=== PATIENT | male | born 1940 | race Caucasian/White ===

== ENCOUNTER → 2016-02-25 | Outpatient (CLI) | payer MEDICARE, OTHER ==
[~2016-02-25] MED LIST: AC500T PO; AMIT25TA9 PO; AMLO5TAB2 PO; ASP81TEC PO; ASPI-587 PO; CARV10CP PO; CIPR500T78 PO; CPR500T PO; FAMO20TA13 PO; HCT25T PO; HYDR-3714 PO; LISI20TA2 PO; LOVA40TA54 PO; MELO-195 PO; MELO7.5T PO; METH4TAB PO; OMEP-10 PO; OMEP20CA12 PO; OSLT75C PO; OXYC-12 PO; PANT40TA PO; PHEN200T27 PO; PRD20T PO; TMSL.4C PO; TRAM-21 PO; TRAM50TA2 PO; TYLENOL ARTHIRITIS PO; ZOLP10TA PO
--- OUTSIDE RECORDS SUMMARY | 2016-02-25 09:24 | XMS REPORT | Continuity of Care Document ---
Author Author [facility] Organization [facility] Address Unknown Phone Unavailable Care Team Providers Care Acid Bleacher Name Role Phone ABEL MONTES MD PCP Insurance Providers Payer Name Policy Number Subscriber Name Relationship [employer] [id number] Willy Pritchard 18 Self / Same As Patient [employer] [id number] Willy Pritchard 16 Self / Same As Patient Advance Directives Directive Response Recorded Date/Time Advance Directives No 10/03/13 2:55pm Health Care Power of Framework Developer No 09/06/13 2:41pm Organ Donor Yes 10/03/13 2:55pm Resuscitation Status Full Code 10/03/13 2:55pm Problems Medical Problems Problem Onset Date Status Acute urinary retention Unknown Active Acute urinary retention Unknown Active Dysuria Unknown Active Dysuria Unknown Active Paresthesia Unknown Active Acute renal insufficiency Unknown Active Weakness Unknown Active Paresthesia Unknown Active Medications Medication Dose Route Sig Days/Qty Instructions Order Date Discontinued Date Status Hydrochlorothiazide 25 Mg PO DAILY 04/09/10 02/11/13 Discontinued Lisinopril 20 Mg PO DAILY 04/09/10 Active Acetaminophen 1,000 Mg PO THREE TIMES A DAY PRN PAIN NEEDED FOR PAIN 04/09/10 Active Lovastatin 40 Mg PO BEDTIME 04/09/10 Active Amitriptyline HCl (Elavil) 25 Mg PO BEDTIME 04/09/10 Active Omeprazole 20 Mg PO DAILY 04/09/10 10/20/11 Discontinued Zolpidem Tartrate 10 Mg PO BEDTIME 04/09/10 07/09/13 Discontinued Tramadol Hcl 50 Mg PO NEEDED 04/09/10 10/20/11 Discontinued Hydrocodone Bit/Acetaminophen 1 Ea PO NEEDED 04/09/10 10/19/11 Discontinued Prednisone 1 Tab PO NEEDED 04/09/10 10/19/11 Discontinued Oseltamivir Phosphate 75 Mg PO TWICE A DAY 10 Qty 04/09/10 04/11/10 Discontinued Ciprofloxacin 1 Tab PO TWICE A DAY 7 Days 04/09/10 04/11/10 Discontinued Meloxicam 7.5 Mg PO DAILY 04/11/10 02/11/13 Discontinued [tylenol arthiritis] 650 Mg PO BEDTIME 04/11/10 10/19/11 Discontinued Omeprazole 20 Mg PO DAILY 30 Qty 11/07/11 02/11/13 Discontinued Aspirin 81 Mg PO DAILY 11/07/11 07/24/13 Discontinued Tramadol Hcl 50 Mg PO BEDTIME 11/07/11 07/08/13 Discontinued Carvedilol Phosphate 10 Mg PO DAILY 11/07/11 02/11/13 Discontinued Meloxicam (Mobic) 15 Mg PO DAILY 02/11/13 Active Amlodipine Besylate (Norvasc 5 Mg) 5 Mg PO DAILY 02/11/13 Active Pantoprazole Sodium 40 Mg PO DAILY 02/11/13 Active Oxycodone Hcl/Acetaminophen 1-2 Each PO Q4-6H PRN PRN PAIN 35 Qty 02/1307/08/13 Discontinued Ciprofloxacin HCl 500 Mg PO TWICE A DAY 10 DAY SUPPLY FILLED ON 07-07-13 07/08/13 09/04/13 Discontinued Tramadol Hcl 50 Mg PO TWICE A DAY PRN PAIN 07/08/13 07/23/13 Discontinued Phenazopyridine HCl 200 Mg PO THREE TIMES A DAY 3 DAY SUPPLY FILLED 07/08/13 07/09/13 Discontinued Famotidine 20 Mg PO TWICE A DAY 20 Qty 07/09/13 Active Tamsulosin HCl 0.4 Mg PO DAILY 30 Qty 07/09/13 07/24/13 Discontinued Ciprofloxacin HCl 500 Mg PO TWICE A DAY 09/06/13 10/03/13 Discontinued Tramadol Hcl 50 Mg PO EVERY 6 HOURS 14 Qty 09/06/13 Active Tamsulosin HCl 0.4 Mg PO DAILY 10/03/13 Active Aspirin 81 Mg PO DAILY 10/03/13 Active Social History Social History Problem Response Recorded Date/Time Alcohol Use Denies Use 10/03/2013 2:55pm Recreational Drug Use No 10/03/2013 2:55pm Smoking Status Never a Smoker 10/03/2013 2:55pm Query Response Start Date Stop Date Smoking Status Never a Smoker Hospital Discharge Instructions No hospital discharge instructions. Plan of Care No plan of care. Functional Status Query Response Date Recorded Patient Orientation Person Place Time Situation Normal For Age October 03, 2013 2:55pm Comprehension Ability Understands Concepts October 03, 2013 2:55pm Allergies, Adverse Reactions, Alerts Allergen Type Severity Reaction Status Last Updated morphine Allergy Unknown Active 05/13/07 Erythromycin base Allergy Unknown Active 05/10/07 Immunizations Name Given Type Date of Pneumonia Vaccine 11/06/08 Historical Vital Signs Acute Vital Signs Vital Response Date/Time Temperature (Fahrenheit) 98.5 degrees F (97.6 - 99.5) Temperature (Calculated Celsius) 36.04431 degrees C (36.4 - 37.5) Temperature Source Temporal Pulse Rate (adult) 91 bpm (60 - 90) Respiratory Rate 20 bpm (12 - 24) O2 Sat by Pulse Oximetry 96 % (88 - 100) Blood Pressure 112/84 mm Hg Pain Pain Intensity 0 Height (Feet) 5 feet Height (Inches) 11 inches Height (Calculated Centimeters) 180.935132 cm Weight (Pounds) 175 pounds Weight (Ounces) 0.0 oz Weight (Calculated Grams) 97563.519 gm Weight (Calculated Kilograms) 79.162800 kilograms Calculated BMI 24.40 Results Test Source Date Result Interp. Ref. Range Comments Activated Partial Thromboplast Time October 03, 2013 3:12pm 29 SEC N 24- 35 Alanine Aminotransferase (ALT/SGPT) October 03, 2013 3:12pm 14 U/L N 0- 55 Albumin October 03, 2013 3:12pm 4.1 G/DL N 3.2-4.5 Alkaline Phosphatase October 03, 2013 3:12pm 44 U/L N 40-136 Amylase Level May 13, 2007 5:35pm 37 U/L N 25-115 Has specimen been collected/obtained? Y Anisocytosis July 08, 2013 4:25am SLIGHT - Aspartate Amino Transf (AST/SGOT) October 03, 2013 3:12pm 12 U/L N 5-34 B-Type Natriuretic Peptide April 09, 2010 8:50am 10.3 PG/ML N 5.0-100.0 BUN/Creatinine Ratio October 03, 2013 3:12pm 19 - Band Neutrophils July 08, 2013 4:25am 1 % - Basophils # (Auto) October 03, 2013 3:12pm 0.0 10^3/uL N 0.0-0.1 Basophils % (Manual) July 08, 2013 4:25am 0 % - Basophils (%) (Auto) October 03, 2013 3:12pm 0 % N 0-10 Blood Urea Nitrogen October 03, 2013 3:12pm 27 MG/DL H 7-18 Calcium Level October 03, 2013 3:12pm 9.4 MG/DL N 8.5-10.1 Carbon Dioxide Level October 03, 2013 3:12pm 22 MMOL/L N 21-32 Chloride Level October 03, 2013 3:12pm 107 MMOL/L N 98-107 Cholesterol Level November 06, 2011 9:50am 129 MG/DL N -200 Creatine Kinase MB April 09, 2010 8:50am 0.3 NG/ML N 0.0-3.6 Creatinine October 03, 2013 3:12pm 1.43 MG/DL H 0.60-1.30 D-Dimer October 03, 2013 3:12pm 0.34 UG/ML N 0.00-0.49 Direct Bilirubin July 08, 2013 4:25am 0.1 MG/DL N 0.0-0.30 Eosinophils # (Auto) October 03, 2013 3:12pm 0.0 10^3/uL N 0.0-0.3 Eosinophils % (Manual) July 08, 2013 4:25am 0 % - Eosinophils (%) (Auto) October 03, 2013 3:12pm 1 % N 0-10 Free Thyroxine April 08, 2010 9:36am 1.15 NG/DL N 0.59-1.17 Gastric Fluid Occult Blood May 10, 2007 1:45am Positive - Glucose Level October 03, 2013 3:12pm 130 MG/DL H 70-105 Group A Streptococcus Screen April 09, 2010 9:14am NEGATIVE - HDL Cholesterol November 06, 2011 9:50am 39 MG/DL N 35-60 Hematocrit October 03, 2013 3:12pm 34 % L 40-54 Hemoglobin October 03, 2013 3:12pm 11.6 G/DL L 13.3-17.7 Indirect Bilirubin July 08, 2013 4:25am 0.5 MG/DL - LDL Cholesterol November 06, 2011 9:50am 73 MG/DL N 0-129 Lactic Acid Level July 08, 2013 5:05am 0.6 MMOL/L N 0.4-2.0 Lipase September 06, 2007 1:00am 231 U/L N 114-286 Has specimen been collected/obtained? YHas specimen been collected/obtained? Y Lymphocytes # (Auto) October 03, 2013 3:12pm 1.2 X 10^3 N 1.0-4.0 Lymphocytes % (Manual) July 08, 2013 4:25am 6 % - Lymphocytes (%) (Auto) October 03, 2013 3:12pm 16 % N 12-44 Mean Corpuscular Hemoglobin October 03, 2013 3:12pm 30 PG N 25-34 Mean Corpuscular Hemoglobin Concent October 03, 2013 3:12pm 34 G/DL N 32- 36 Mean Corpuscular Volume October 03, 2013 3:12pm 90 FL N 80-99 Mean Platelet Volume October 03, 2013 3:12pm 9.3 FL N 7.4-10.4 Monocytes # (Auto) October 03, 2013 3:12pm 0.3 X 10^3 N 0.0-1.0 Monocytes % (Manual) July 08, 2013 4:25am 5 % - Monocytes (%) (Auto) October 03, 2013 3:12pm 3 % N 0-12 Neutrophils # (Auto) October 03, 2013 3:12pm 6.2 X 10^3 N 1.8-7.8 Neutrophils % (Manual) July 08, 2013 4:25am 87 % - Neutrophils (%) (Auto) October 03, 2013 3:12pm 80 % H 42-75 Platelet Count October 03, 2013 3:12pm 200 10^3/uL N 130-400 Potassium Level October 03, 2013 3:12pm 4.6 MMOL/L N 3.6-5.0 Prothromb Time International Ratio November 06, 2011 9:50am 0.9 N 0.8- 1.4 INTERPRETIVE DATASUGGESTED THERAPEUTIC RANGE FOR INR'S : VENOUS THROMBOSIS, PULMONARY EMBOLISM, OR PREVENTION OF SYSTEMIC EMBOLISM (EG. IN ATRIAL FIBRILLATION): 2.0 - 3.0 MECHANICAL PROSTHETIC HEART VALVES: 2.5 - 3.5* *NOTE: INR'S UP TO 4.5 MAY BE NECESSARY IN SELECTED GROUPS OF HIGH RISK PATIENTS. [employer] PHYSIC[employer]ANS CONSENSUS CONFERENCE ON ANTITHROMBOTIC THERAPY (2000). Prothrombin Time October 03, 2013 3:12pm 13.8 SEC N 12.2-14.7 Reactive Lymphocytes July 08, 2013 4:25am 1 % - Red Blood Count October 03, 2013 3:12pm 3.81 10^6/uL L 4.35-5.85 Red Cell Distribution Width October 03, 2013 3:12pm 13.3 % N 10.0-14.5 Salicylates Level April 09, 2010 8:50am 0.4 MG/DL L 2.8-20.0 Sodium Level October 03, 2013 3:12pm 139 MMOL/L N 135-145 TSH [place] Testing April 08, 2010 9:36am 0.20 UIU/ML L 0.34-5.60 FREE T4 (THYROXINE) PERFORMED REFLEXIVELY PART OF THETHYROID ANALYZER. Thyroid Stimulating Hormone (TSH) April 09, 2010 8:50am 0.30 UIU/ML L 0.34-5.60 Total Bilirubin October 03, 2013 3:12pm 0.5 MG/DL N 0.1-1.0 Total Protein October 03, 2013 3:12pm 7.2 G/DL N 6.4-8.2 Triglycerides Level November 06, 2011 9:50am 87 MG/DL N 30.0-150.0 Troponin I October 03, 2013 3:12pm < 0.30 NG/ML - Urine Bacteria September 04, 2013 7:58pm TRACE /HPF - Has specimen been collected/obtained? YSpecimen Description CLEAN CATCH Urine Bilirubin September 04, 2013 7:58pm NEGATIVE - Has specimen been collected/obtained? YSpecimen Description CLEAN CATCH Urine Casts September 04, 2013 7:58pm NONE /LPF - Has specimen been collected/obtained? YSpecimen Description CLEAN CATCH Urine Clarity September 04, 2013 7:58pm VERY CLOUDY H - Has specimen been collected/obtained? YSpecimen Description CLEAN CATCH Urine Color September 04, 2013 7:58pm LORNE H - Has specimen been collected/ obtained? YSpecimen Description CLEAN CATCH Urine Crystals September 04, 2013 7:58pm NONE /LPF - Has specimen been collected/obtained? YSpecimen Description CLEAN CATCH Urine Culture Indicated September 04, 2013 7:58pm YES - Has specimen been collected/obtained? YSpecimen Description CLEAN CATCH Urine Glucose (UA) September 04, 2013 7:58pm NEGATIVE - Has specimen been collected/obtained? YSpecimen Description CLEAN CATCH Urine Ketones September 04, 2013 7:58pm 1+ H - Has specimen been collected/ obtained? YSpecimen Description CLEAN CATCH Urine Leukocyte Esterase September 04, 2013 7:58pm 3+ H - Has specimen been collected/obtained? YSpecimen Description CLEAN CATCH Urine Mucus September 04, 2013 7:58pm SMALL /LPF H - Has specimen been collected/obtained? YSpecimen Description CLEAN CATCH Urine Nitrite September 04, 2013 7:58pm NEGATIVE - Has specimen been collected/obtained? YSpecimen Description CLEAN CATCH Urine Protein September 04, 2013 7:58pm 2+ H - Has specimen been collected/ obtained? YSpecimen Description CLEAN CATCH Urine RBC September 04, 2013 7:58pm TNTC /HPF H - Has specimen been collected/obtained? YSpecimen Description CLEAN CATCH Urine Specific [place] September 04, 2013 7:58pm 1.015 L - Has specimen been collected/obtained? YSpecimen Description CLEAN CATCH Urine Squamous Epithelial Cells July 21, 2013 2:17pm NONE /HPF - Has specimen been collected/obtained? YSpecimen Description CLEAN CATCH Urine Urobilinogen September 04, 2013 7:58pm NORMAL MG/DL - Has specimen been collected/obtained? YSpecimen Description CLEAN CATCH Urine WBC September 04, 2013 7:58pm 25-50 /HPF H - Has specimen been collected/obtained? YSpecimen Description CLEAN CATCH Urine pH September 04, 2013 7:58pm 7 - Has specimen been collected/ obtained? YSpecimen Description CLEAN CATCH VLDL Cholesterol November 06, 2011 9:50am 17 MG/DL N 5-40 White Blood Count October 03, 2013 3:12pm 7.7 10^3/uL N 4.3-11.0 Estimat Glomerular Filtration Rate October 03, 2013 3:12pm 48 - GFR INTERPRETIVE DATA UNITS FOR ESTIMATED GFR (eGFR): mL/min/1.73 M2 REFERENCE RANGE FOR ESTIMATED GFR (eGFR) eGFR NORMAL eGFR >60 MODERATELY DECREASED eGFR 30-59 SEVERLY DECREASED eGFR 15-29 KIDNEY FAILURE <15 (OR DIALYSIS) Blood Morphology Comment September 06, 2007 1:00am Normal - Has specimen been collected/obtained? Y Creatine Kinase April 09, 2010 8:50am 118 U/L N 21-170 Urine RBC (Auto) September 04, 2013 7:58pm 5+ H - Has specimen been collected/obtained? YSpecimen Description CLEAN CATCH INR Comment October 03, 2013 3:12pm 1.1 N 0.8-1.4 INTERPRETIVE DATASUGGESTED THERAPEUTIC RANGE FOR INR'S: VENOUS THROMBOSIS, PULMONARY EMBOLISM, OR PREVENTION OF SYSTEMIC EMBOLISM (EG. IN ATRIAL FIBRILLATION): 2.0 - 3.0 MECHANICAL PROSTHETIC HEART VALVES: 2.5 - 3.5* *NOTE: INR'S UP TO 4.5 MAY BE NECESSARY IN SELECTED GROUPS OF HIGH RISK PATIENTS. [employer] CONSENSUS CONFERENCE ON ANTITHROMBOTIC THERAPY (2000). Blood Culture Peripheral-Rt Ac July 08, 2013 5:00am No growth Ova and Parasites Stool May 16, 2007 7:10am MRSA Screen Nasal July 21, 2013 2:15pm MRSA not isolated Urine Culture Urine-Clean Catch September 04, 2013 7:58pm NO GROWTH Procedures Procedure Status Date Provider(s) Tracing only of electrocardiogram completed 10/03/13 JAZMYNE MAYFIELD MD Encounters Encounter Location Date/Time Departed Emergency Room [facility] 10/03/13 2:56pm Departed Emergency Room [facility] 09/06/13 2:34pm Departed Emergency Room [facility] 09/04/13 7:14pm Recent Diagnosis
--- NOTE | 2016-02-25 13:05 | Diagnostic Imaging Report ---
PA and lateral views of the chest. COMPARISON: 07/21/2013. INDICATION: Shortness of breath and cough. FINDINGS: There is minimal atelectasis or scarring in the right lung base. The left lung is clear. The heart size is normal. No effusion or pneumothorax. Mediastinum and yaneli appear unremarkable. Flattening of the diaphragms on the lateral view is suggestive of hyperinflation probably related to COPD. IMPRESSION: COPD. Minimal right basilar atelectasis or scarring. Dictated by: Dictated on workstation # [id number]
== END ==
LOC: RAD 09:20
PROVIDERS: ATTEND Urology
DX: R05 Cough (principal); R06.02 Shortness of breath; J44.9 Chronic obstructive pulmonary disease, unspecified
CPT/HCPCS: 71020

== ENCOUNTER → 2016-09-12 | Outpatient (CLI) | payer MEDICARE, OTHER ==
[~2016-09-12] VITALS: Ht 177.8 cm; Wt 73.9 kg
[~2016-09-12] MED LIST changes: +CATHETER FLUSH 10 ML SYR IV PRN; +REGADENOSON 0.4 MG/5 ML SYR (LEXISCAN) IV ONE
[2016-09-12 12:58] VITALS: BP 160/79
--- NOTE | 2016-09-13 07:06 | STRESS TEST ---
DATE OF SERVICE: 09/12/2016 RESTING AND POST-REGADENOSON TECHNETIUM-[address] IMAGING ORDERING PHYSICIAN: Dr. Eugene. PRIMARY PHYSICIAN: ____. CLINICAL DIAGNOSIS: Shortness of breath. Baseline images were carried out after injection of 10.94 mCi of technetium-99 tetrofosmin. This was followed by 0.4 mg regadenoson and 28.9 mCi of technetium-99 tetrofosmin for stress imaging. The electrocardiogram showed sinus rhythm at baseline and did not change significantly with the regadenoson infusion. Review of images at rest and following stress does not indicate evidence of significant myocardial ischemia or infarction. Gated images show normal global left ventricular systolic function with normal regional wall motion. Left ventricular ejection fraction is calculated to be 73%. Left ventricular end-diastolic volume is 63 mL. TID is absent (1.05). CONCLUSIONS: 1. No evidence of any significant myocardial ischemia or infarction on this study. 2. Normal regional wall motion. 3. Normal global left ventricular systolic function with a calculated ejection fraction of 73%. 4. Normal left ventricular cavity size. Job ID: [id number] DocumentID: [id number] Dictated Date: 09/12/2016 15:02:18 Upholstery Cutter Date: 09/13/2016 02:12:44 Dictated By: JUAN EUGENE MD, MA, FACP, FACC,
== END ==
LOC: CARD 10:54
PROVIDERS: ATTEND Internal Medicine Cardiovascular Disease
DX: R06.02 Shortness of breath (principal)
CPT/HCPCS: 78452; 93017

== ENCOUNTER → 2016-10-18 | Outpatient (CLI) | payer MEDICARE, OTHER ==
[~2016-10-18] MED LIST changes: -CATHETER FLUSH 10 ML SYR IV PRN; -REGADENOSON 0.4 MG/5 ML SYR (LEXISCAN) IV ONE; +RT-ALBUTEROL SULF 2.5 MG/3 ML PRE-MIX VIAL IH ONE; +RT-ALBUTEROL SULF 2.5 MG/3 ML PRE-MIX VIAL ONE
== END ==
LOC: RT 08:43
PROVIDERS: ATTEND Nurse Practitioner Family
DX: I25.10 Atherosclerotic heart disease of native coronary artery without angina pectoris (principal); I65.23 Occlusion and stenosis of bilateral carotid arteries; I10 Essential (primary) hypertension; E78.4 Other hyperlipidemia; R06.09 Other forms of dyspnea
CPT/HCPCS: 94060; 94640; 94726; 94729

== ENCOUNTER → 2016-12-22 | Outpatient (CLI) | payer MEDICARE, OTHER ==
[~2016-12-22] MED LIST changes: -RT-ALBUTEROL SULF 2.5 MG/3 ML PRE-MIX VIAL IH ONE; -RT-ALBUTEROL SULF 2.5 MG/3 ML PRE-MIX VIAL ONE
== END ==
LOC: CARD 12:34
PROVIDERS: ATTEND Nurse Practitioner Family
DX: R06.09 Other forms of dyspnea (principal); I10 Essential (primary) hypertension; I25.10 Atherosclerotic heart disease of native coronary artery without angina pectoris; I65.23 Occlusion and stenosis of bilateral carotid arteries
CPT/HCPCS: 93306

== ENCOUNTER → 2019-08-26 | Outpatient (CLI) | payer MEDICARE, OTHER ==
[~2019-08-26] VITALS: Ht 178 cm; Wt 75.0 kg
[~2019-08-26] MED LIST changes: +CATHETER FLUSH 10 ML SYR IV PRN; +REGADENOSON 0.4 MG/5 ML SYR (LEXISCAN) IV ONE
[2019-08-26 13:09] VITALS: BP 192/92
--- NOTE | 2019-08-26 15:53 | STRESS TEST ---
DATE OF SERVICE: 08/26/2019 RESTING AND POST REGADENOSON TECHNETIUM-99M TETROFOSMIN SPECT CT IMAGING ORDERING PHYSICIAN: CODY Flood CLINICAL DIAGNOSES: Coronary artery disease. Baseline images were carried out after injection of 10.99 mCi of technetium-99m Tetrofosmin. This was followed by 0.4 mg Regadenoson and 32.8 mCi of technetium-99m Tetrofosmin for stress imaging. The electrocardiogram showed sinus rhythm at baseline. Old septal wall myocardial infarction cannot be excluded on the electrocardiogram. The electrocardiogram did not change significantly with the Regadenoson infusion. The patient tolerated the procedure well. Review of images at rest and following stress does not indicate any significant perfusion defects consistent with significant myocardial ischemia or infarction. Gated images show normal global left ventricular systolic function with normal regional wall motion. Left ventricular ejection fraction is calculated to be 73%. Left ventricular end diastolic volume is 62 mL. TID is absent (1.05). CONCLUSIONS: 1. No evidence of any significant myocardial ischemia or infarction on this study. 2. Normal regional wall motion. 3. Normal global left ventricular systolic function with a calculated ejection fraction of 73%. Job ID: [id number] DocumentID: [id number] Dictated Date: 08/26/2019 15:44:17 Follow Up Manager Date: 08/26/2019 15:53:10 Dictated By: JUAN LOVE MD, MA, FACP, FACC,
== END ==
LOC: CARD 11:35
PROVIDERS: ATTEND Nurse Practitioner Family
DX: I08.2 Rheumatic disorders of both aortic and tricuspid valves (principal); I25.10 Atherosclerotic heart disease of native coronary artery without angina pectoris
CPT/HCPCS: 78452; 93017; 93306; A9502

== ENCOUNTER → 2020-08-23 | Outpatient (CLI) | payer MEDICARE, OTHER ==
[~2020-08-23] MED LIST changes: -CATHETER FLUSH 10 ML SYR IV PRN; -REGADENOSON 0.4 MG/5 ML SYR (LEXISCAN) IV ONE
--- NOTE | 2020-08-23 12:27 | Diagnostic Imaging Report ---
INDICATION: Neck pain. No relevant comparison. FINDINGS: There is severe degenerative changes at the C5-C6 and moderate to severe C6-C7 spondylosis. There is trace likely degenerative retrolisthesis C5 on C6 grade 1 of about 1 to 2 mm. The prevertebral space appeared normal. No fracture or acute appearing endplate irregularity. IMPRESSION: 1. Advanced lower cervical spondylosis most profound at the C5-C6 level, no acute appearing abnormality however identified. 2. Given the severity of degenerative changes if there is radiculopathy present or otherwise indicated, nonemergent outpatient follow-up with MRI may be useful if there are clinically suspected stenoses. Dictated by: Dictated on workstation # [id number]
== END ==
LOC: RAD 11:50
PROVIDERS: ATTEND Internal Medicine
DX: M47.812 Spondylosis without myelopathy or radiculopathy, cervical region (principal)
CPT/HCPCS: 72040

== ENCOUNTER → 2020-09-08 | Outpatient (CLI) | payer MEDICARE, OTHER ==
--- NOTE | 2020-09-08 10:26 | Diagnostic Imaging Report ---
PROCEDURE: MRI lumbar spine. TECHNIQUE: Multiplanar, multisequence MRI of the lumbar spine was performed without contrast. INDICATION: Back pain. COMPARISON: None FINDINGS: There is transitional lumbosacral anatomy. When compared to previous CT abdomen and pelvis dated 07/08/2013, rudimentary disc is denoted to be S1-S2 level. Evaluation of static alignment demonstrates moderate dextroscoliotic deformity epicentered at the L3-L4 level. There is also slight grade 1 retrolisthesis at T12-L1 through L2-L3. There is also slight grade 1 anterolisthesis at L4-L5. There is no evidence of jumped facets. Vertebral body heights are maintained. There is no acute fracture. Evaluation of marrow signal demonstrates multilevel mild Modic type I endplate changes. Moderate multilevel intervertebral disc height loss is also present. Multilevel anterior and posterior disc bulges are present. Visualized portions of the distal cord are unremarkable. Conus terminates at approximately the L1 level. No abnormal intrathecal filling defects are seen. Pre and paravertebral soft tissue structures are unremarkable. Axial images demonstrate the following: T12-L1: There is mild broad-based posterior disc bulge and bilateral ligamentum flavum laxity and facet arthropathy. As a result, there is moderate narrowing of the right neuroforamen and mild narrowing of the spinal canal and left neuroforamen. L1-L2: There is broad-based posterior disc bulge and bilateral ligamentum flavum laxity and facet arthropathy. As a result, there is moderate stenosis of the spinal canal and right neuroforamen. There is minimal narrowing on the left. L2-L3: There is broad-based posterior disc bulge and bilateral ligamentum flavum laxity and facet arthropathy. As a result, there is moderate stenosis of the spinal canal and bilateral neural foramen. L3-L4: There is broad-based posterior disc bulge and bilateral ligamentum flavum laxity and facet arthropathy. As a result, there is moderate stenosis of the spinal canal and left neuroforamen. There is also mild narrowing on the right. L4-L5: There is broad-based posterior disc bulge and bilateral ligamentum flavum laxity and facet arthropathy. As a result, there is wxdvqpvv-ys-nmamau spinal canal and left neural foraminal stenosis. There is also ginx-ag-uyybsbka narrowing on the right. L5-S1: There is broad-based posterior disc bulge and bilateral facet arthropathy and ligamentum flavum laxity. As a result, there is severe stenosis of the right neuroforamen and flhe-nz-koacjxui stenosis on the left. There is minimal narrowing of the spinal canal. IMPRESSION: 1. Advanced dextroscoliotic deformity and advanced multilevel degenerative changes of the lumbar spine as described above. 2. No acute fracture or dislocation. Dictated by: Dictated on workstation # [id number]
--- NOTE | 2020-09-08 11:38 | Diagnostic Imaging Report ---
PROCEDURE: MR imaging cervical spine without contrast. TECHNIQUE: Multiplanar, multisequence MR imaging of the cervical spine was performed without contrast. INDICATION: Pain in lower neck. COMPARISON: Cervical spine radiographs of 08/23/2020. FINDINGS: Degenerative straightening of the cervical spine is present. There is approximately 3 mm of anterolisthesis of C7 on T1 due to facet osteoarthritis. No fracture or marrow replacing process. There is degenerative pannus around the C1-C2 articulation, but this does not result in significant spinal canal narrowing at the craniocervical junction. The cervical cord maintains normal size and signal. Specifically, there are no features of myelopathy. C2-C3: Central disc protrusion and ligamentum flavum hypertrophy result in mild spinal stenosis. No foraminal narrowing. C3-C4: Left paracentral disc protrusion with ligamentum flavum hypertrophy results in severe spinal stenosis. Moderate bilateral foraminal narrowing is present due to uncovertebral joint hypertrophy and facet osteoarthritis. C4-C5: Central disc protrusion and ligamentum flavum hypertrophy result in moderate spinal stenosis. Severe left and nqwqyiby-fi-jpunoj right foraminal stenosis due to uncovertebral joint hypertrophy. C5-C6: Central disc protrusion with ligamentum flavum hypertrophy causes severe spinal stenosis. There is also severe bilateral neural foraminal narrowing due to uncovertebral joint hypertrophy. C6-C7: Disc protrusion and uncovertebral joint hypertrophy result in mild spinal stenosis and urrohcal-jd-lymcyq foraminal narrowing. C7-T1: No spinal canal or foraminal narrowing. IMPRESSION: 1. Diffuse degenerative changes throughout the cervical spine resulting in severe spinal stenosis at C3-C4 and C5-C6. 2. Degenerative changes also cause varying degrees of zilp-qi-fdoacx neural foraminal narrowing at multiple levels. 3. Cervical cord maintains normal signal. Dictated by: Dictated on workstation # [id number]
== END ==
LOC: RAD 08:00
PROVIDERS: ATTEND Orthopaedic Surgery
DX: M47.22 Other spondylosis with radiculopathy, cervical region (principal); M48.02 Spinal stenosis, cervical region; M47.27 Other spondylosis with radiculopathy, lumbosacral region; M51.27 Other intervertebral disc displacement, lumbosacral region; M48.07 Spinal stenosis, lumbosacral region; M43.8X6 Other specified deforming dorsopathies, lumbar region
CPT/HCPCS: 72141; 72148

== ENCOUNTER → 2021-04-27 | Outpatient (CLI) | payer MEDICARE, OTHER ==
[2021-04-27 11:04] LABS: ABSOLUTE RETIC # 29 10e9/uL (24-90); BASOPHILS % (AUTO) 1 % (0-10); EOSINOPHILS # (AUTO) 0.2 10^3/uL (0.0-0.3); EOSINOPHILS % (AUTO) 3 % (0-10); HEMATOCRIT 38 % (40-54); HEMOGLOBIN 12.4 g/dL (13.3-17.7); LYMPHOCYTES % (AUTO) 36 % (12-44); MEAN CORPUSCULAR HEMOGLOBIN 30 pg (25-34); MEAN CORPUSCULAR HGB CONC 33 g/dL (32-36); MEAN CORPUSCULAR VOLUME 92 fL (80-99); MEAN PLATELET VOLUME 9.5 fL (9.0-12.2); MONOCYTES # (AUTO) 0.3 10^3/uL (0.0-1.0); MONOCYTES % (AUTO) 5 % (0-12); NEUTROPHILS % (AUTO) 55 % (42-75); PLATELET COUNT 222 10^3/uL (130-400); RETICULOCYTE % 0.71 % (0.50-2.40); WHITE BLOOD COUNT 5.4 10^3/uL (4.3-11.0)
[2021-04-27 12:24] LABS: EOSINOPHILS % (MANUAL) 2 %; LYMPHOCYTES % (MANUAL) 38 %; MONOCYTES % (MANUAL) 5 %; NEUTROPHILS % (MANUAL) 55 %; RBC MORPH NORMAL
== END ==
LOC: LAB 10:26
PROVIDERS: ATTEND Internal Medicine
DX: D64.9 Anemia, unspecified (principal)
CPT/HCPCS: 36415; 85007; 85027; 85045; 85055

== ENCOUNTER → 2021-06-13 | Outpatient (CLI) | payer MEDICARE, OTHER | LOC: CARD 09:54 | PROVIDERS: ATTEND Internal Medicine Cardiovascular Disease | DX: I08.0 Rheumatic disorders of both mitral and aortic valves (principal); I25.10 Atherosclerotic heart disease of native coronary artery without angina pectoris | CPT/HCPCS: 93306 ==

== ENCOUNTER → 2021-06-14 | Outpatient (CLI) | payer MEDICARE, OTHER ==
[~2021-06-14] VITALS: Ht 175 cm; Wt 75.0 kg
[~2021-06-14] MED LIST changes: +CATHETER FLUSH 10 ML SYR IVP PRN; +REGADENOSON 0.4 MG/5 ML SYR (LEXISCAN) IV ONE
[2021-06-14 09:26] VITALS: BP 171/89
--- NOTE | 2021-06-14 21:24 | STRESS TEST ---
DATE OF SERVICE: 06/14/2021 RESTING AND POST REGADENOSON TECHNETIUM-99M TETROFOSMIN SPECT CT IMAGING ORDERING PHYSICIAN: Dr. Eugene. PRIMARY PHYSICIAN: Dr. Elizabeth. CLINICAL DIAGNOSIS: Coronary artery disease. Baseline images were carried out after injection of 10.49 mCi of technetium-99m Tetrofosmin. This was followed by 0.4 mg regadenoson and 29 mCi of technetium-99m Tetrofosmin for stress imaging. The electrocardiogram showed sinus rhythm at baseline. It did not change significantly with regadenoson infusion. Review of images at rest and following stress does not indicate any significant perfusion defects consistent with myocardial ischemia or infarction. Some degree of diaphragmatic attenuation is seen both at rest and following regadenoson infusion. Gated images show normal global left ventricular systolic function with normal regional wall motion, including the diaphragmatic wall of the left ventricle. Left ventricular ejection fraction calculated to be 71%. CONCLUSIONS: 1. No evidence of any significant myocardial ischemia or infarction of the study. 2. Normal regional wall motion. 3. Normal global left ventricular systolic function with a calculated ejection fraction of 71%. Job ID: [id number] DocumentID: [id number] Dictated Date: 06/14/2021 17:46:37 Cell Builder Date: 06/14/2021 21:24:50 Dictated By: JUAN EUGENE MD, MA, FACP, FACC,
== END ==
LOC: CARD 06:52
PROVIDERS: ATTEND Internal Medicine Cardiovascular Disease
DX: I25.10 Atherosclerotic heart disease of native coronary artery without angina pectoris (principal)
CPT/HCPCS: 78452; 93017; A9502

== ENCOUNTER 2021-10-18 00:53 | Inpatient (IN) | payer MEDICARE, OTHER ==
[~2021-10-18] VITALS: Ht 175.3 cm; Wt 69.4 kg
[~2021-10-18 00:53] MED LIST changes: -CATHETER FLUSH 10 ML SYR IVP PRN; -REGADENOSON 0.4 MG/5 ML SYR (LEXISCAN) IV ONE
[2021-10-18] MEDS ORDERED: LACTATED RINGERS 1,000 ML IV ONE ×2 (01:00→03:54)
[2021-10-18 01:09] LABS: BASOPHILS % (AUTO) 0 % (0-10); EOSINOPHILS % (AUTO) 0 % (0-10); HEMATOCRIT 36 % (40-54); HEMOGLOBIN 12.1 g/dL (13.3-17.7); LYMPHOCYTES # (AUTO) 1.3 10^3/uL (1.0-4.0); LYMPHOCYTES % (AUTO) 8 % (12-44); MEAN CORPUSCULAR HEMOGLOBIN 31 pg (25-34); MEAN CORPUSCULAR HGB CONC 34 g/dL (32-36); MEAN CORPUSCULAR VOLUME 91 fL (80-99); MEAN PLATELET VOLUME 9.6 fL (9.0-12.2); MONOCYTES # (AUTO) 0.4 10^3/uL (0.0-1.0); MONOCYTES % (AUTO) 2 % (0-12); NEUTROPHILS # (AUTO) 15.5 10^3/uL (1.8-7.8); NEUTROPHILS % (AUTO) 89 % (42-75); PLATELET COUNT 216 10^3/uL (130-400); WHITE BLOOD COUNT 17.4 10^3/uL (4.3-11.0)
--- NOTE | 2021-10-18 01:09 | ED GI ---
General Chief Complaint: Abdominal/GI Problems Stated Complaint: N/V/D Source of Information: Patient (LIMITED HISTORIAN ABOUT PMH AND MEDICATIONS), EMS, Old Records (ALL PMH IS FROM OLD RECORDS) History of Present Illness Date Seen by Provider: Oct 18, 2021 Time Seen by Provider: 00:54 Initial Comments PT ARRIVES VIA EMS FROM HOME--PT LIVES ALONE AROUND 2200 TONIGHT, HE BEGAN TO HAVE NAUSEA/VOMITING/DIARRHEA, CHILLS, AND BODY ACHES AND JOINT PAIN, AND GENERALIZED WEAKNESS STATES HE HAS ARTHRITIS AND HE REALLY HURTS BAD ALL OVER HAS VOMITED X 6-8 TIMES HAS HAD DIARRHEA X 6-8 TIMES PT HAS BEEN INCONTINENT OF BOTH STOOL AND URINE --PT STATES HE IS ALWAYS INCONTINENT OF URINE ( HX OF TURP AND TURBT) PT STATES HE FELT FINE THIS MORNING AND ATE BREAKFAST AND LUNCH STATES HE "DIDN'T FEEL GOOD" DURING THE DAY, BUT DID NOT HAVE ANY SPECIFIC SYMPTOMS UNTIL 2200 TONIGHT PT HAS HAD COVID-19 VACCINE X 3 EMS GAVE ZOFRAN 4 MG PRIOR TO ARRIVAL, AND PT STATES HE IS NOT NAUSEATED AT THIS TIME IV FLUIDS ALSO STARTED BY EMS PCP: DR. STERN Allergies and Home Medications Allergies Coded Allergies: erythromycin base (Verified Allergy, Unknown, 05/10/07) morphine (Verified Allergy, Unknown, 05/13/07) Patient Home Medication List Home Medication List Reviewed: Yes Acetaminophen (Tylenol) 500 Mg Tablet, 1,000 MG PO TID PRN for PAIN, (Reported) Entered as Reported by: MENDY LU on 04/09/10 0836 Amitriptyline Hcl (Amitriptyline Hcl) 25 Mg Tablet, 25 MG PO HS, (Reported) Entered as Reported by: MENDY LU on 04/09/10 0836 Amlodipine Besylate (Amlodipine Besylate) 5 Mg Tablet, 5 MG PO DAILY, (Reported) Entered as Reported by: STEWART PRESLEY on 02/11/13 1121 Aspirin (Aspir 81) 81 Mg Tablet., 81 MG PO DAILY, (Reported) Entered as Reported by: SULY ARMSTRONG on 10/03/13 1536 Famotidine (Pepcid) 20 Mg Tablet, 20 MG PO BID Prescribed by: CATE MONTES on 07/09/13 1325 Lisinopril (Lisinopril) 20 Mg Tablet, 20 MG PO DAILY, (Reported) Entered as Reported by: MENDY LU on 04/09/10 0836 Lovastatin (Altoprev) 40 Mg Tab.sr.24h, 40 MG PO HS, (Reported) Entered as Reported by: MENDY LU on 04/09/10 0836 Meloxicam (Meloxicam) 15 Mg Tablet, 15 MG PO DAILY, (Reported) Entered as Reported by: STEWART PRESLEY on 02/11/13 1121 Methylprednisolone (Medrol Dose Pack) 4 Mg/Dose-Pack Tab.ds.pk, 0 PO UD Prescribed by: ISAIAS CHAVARRIA on 10/09/13 1825 Tramadol Hcl (Ultram) 50 Mg Tablet, 50 MG PO Q6H Prescribed by: COCO ALEMAN on 09/06/13 1546 Review of Systems Review of Systems Constitutional: see HPI, chills, malaise, weakness EENTM: No Symptoms Reported Respiratory: No Symptoms Reported Cardiovascular: No Symptoms Reported Gastrointestinal: See HPI; Denies Abdominal Pain; Diarrhea, Nausea, Vomiting Genitourinary: See HPI Musculoskeletal: see HPI, joint pain, muscle pain Skin: no symptoms reported Psychiatric/Neurological: No Symptoms Reported Endocrine: No Symptoms Reported Hematologic/Lymphatic: No Symptoms Reported Past Khvbrja-Ufljyx-Irudoo Hx Past Medical History Surgeries: Yes Abdominal, Bladder Surgery, Cardiac, Transurethral Resection Respiratory: No Cardiac: Yes High Cholesterol, Hypertension Neurological: No Reproductive Disorders: Yes (ENLARGED PROSTATE) Genitourinary: Yes (BLADDER CANCER) Prostate Problems, Bladder Infection Gastrointestinal: Yes Abdominal Hernia, Gastroesophageal Reflux, Diverticulosis, Hemorrhoids, Polyps, Esophagitis, Hiatal Hernia Musculoskeletal: Yes Arthritis Endocrine: No HEENT: No Cancer: Yes Bladder Did You Recieve Any Treatments: Yes What Type of Treatment Did You: Surgical Intervention 07/23/13--TURP WITH TURBT BY DR. LENNON Psychosocial: No Integumentary: No Blood Disorders: No Adverse Reaction/Blood Tranf: No Family Medical History Cancer Cancer of colon Cataract Chest pain Congestive heart failure Dementia Family history: Allergy Family history: Arthritis Family history: Breast disease Family history: Cardiovascular disease Family history: Diabetes mellitus Family history: Hypertension Headache Hearing loss Heart disease History of - anemia History of - respiratory disease Myocardial infarction Prostate cancer Stroke Visual impairment No Family History of: Abdominal aortic aneurysm [place]'s disease Alcoholism Aphasia Congenital heart disease Cystic fibrosis Dysphagia Family history: Alzheimer's disease Family history: Coronary thrombosis Family history: Gastrointestinal disease Family history: Glaucoma Family history: Osteoporosis Family history: Thyroid disorder Hereditary disease History of - disorder History of drug abuse Human immunodeficiency virus (HIV) seropositivity Hypercholesterolemia Infertile Kidney disease Malignant neoplasm of lung Parkinson's disease Psychotic disorder Seizure disorder Tuberculosis PAST SURGICAL HISTORY: -EGD'S AND COLONOSCOPIES--POLYPECTOMIES -HEMORRHOIDAL BANDING -11/13/2013--COLONOSCOPY AND BILATERAL INGUINAL HERNIA REPAIR WITH MESH BY -07/23/2013--TURP AND TURBT BY DR. LENNON -11/2011--CARDIAC CATH BY DR. JACOBO--MODERATE DISEASE TO LAD. NO INTERVENTION -06/14/21--STRESS TEST BY DR. LOVE--ESSENTIALLY NORMAL WITH EF 70% Physical Exam Vital Signs Vital Signs - First Documented 10/18/21 00:56 Temp 36.5 Pulse 110 Resp 22 B/P (MAP) 134/90 (105) Pulse Ox 97 O2 Delivery Room Air Capillary Refill : Height/Weight/BMI Height: 5'10.00" Weight: 163lbs. 0.0oz. 73.962086cn; 24.48 BMI Method: General Appearance: thin, other (SHIVERING, WEARING T-SHIRT AND UNDERWEAR. PT HAS BEEN INCONTINENT OF LIQUID STOOL AND OF URINE PRIOR TO ARRIVAL. T-SHIRT HAS DRIED EMESIS ON IT. ) HEENT: other (ORAL MUCOSA IS DRY) Neck: normal inspection Respiratory: normal breath sounds, no respiratory distress, no accessory muscle use Cardiovascular: normal peripheral pulses, no JVD, no murmur, tachycardia Gastrointestinal: non tender, soft, no organomegaly, no pulsatile mass, abnormal bowel sounds (SOMEWHAT DECREASED); No distended, No hernia, No mass Extremities: normal inspection, normal capillary refill Back: no CVA tenderness Neurologic/Psychiatric: yard pilot II-XII nml as tested, no motor/sensory deficits, alert, normal mood/affect, oriented x 3 (BUT LIMITED MEMORY ) Skin: normal color, warm/dry Progress/Results/Core Measures Results/Orders Lab Results Laboratory Tests Test 10/18/21 00:58 10/18/21 01:30 Range/Units White Blood Count 17.4 H 4.3-11.0 10^3/uL Red Blood Count 3.96 L 4.30-5.52 10^6/uL Hemoglobin 12.1 L 13.3-17.7 g/dL Hematocrit 36 L 40-54 % Mean Corpuscular Volume 91 80-99 fL Mean Corpuscular Hemoglobin 31 25-34 pg Mean Corpuscular Hemoglobin Concent 34 32-36 g/dL Red Cell Distribution Width 13.0 10.0-14.5 % Platelet Count 216 130-400 10^3/uL Mean Platelet Volume 9.6 9.0-12.2 fL Immature Granulocyte % (Auto) 0 % Neutrophils (%) (Auto) 89 H 42-75 % Lymphocytes (%) (Auto) 8 L 12-44 % Monocytes (%) (Auto) 2 0-12 % Eosinophils (%) (Auto) 0 0-10 % Basophils (%) (Auto) 0 0-10 % Neutrophils # (Auto) 15.5 H 1.8-7.8 10^3/uL Lymphocytes # (Auto) 1.3 1.0-4.0 10^3/uL Monocytes # (Auto) 0.4 0.0-1.0 10^3/uL Eosinophils # (Auto) 0.0 0.0-0.3 10^3/uL Basophils # (Auto) 0.0 0.0-0.1 10^3/uL Immature Granulocyte # (Auto) 0.1 0.0-0.1 10^3/uL Neutrophils % (Manual) 80 % Lymphocytes % (Manual) 15 % Monocytes % (Manual) 2 % Band Neutrophils 3 % Blood Morphology Comment NORMAL Sodium Level 139 135-145 MMOL/L Potassium Level 4.5 3.6-5.0 MMOL/L Chloride Level 102 98-107 MMOL/L Carbon Dioxide Level 19 L 21-32 MMOL/L Anion Gap 18 H 5-14 MMOL/L Blood Urea Nitrogen 30 H 7-18 MG/DL Creatinine 1.44 H 0.60-1.30 MG/DL Estimat Glomerular Filtration Rate 48 BUN/Creatinine Ratio 21 Glucose Level 138 H 70-105 MG/DL Calcium Level 10.5 H 8.5-10.1 MG/DL Corrected Calcium 8.5-10.1 MG/DL Magnesium Level 1.8 1.6-2.4 MG/DL Total Bilirubin 0.7 0.1-1.0 MG/DL Aspartate Amino Transf (AST/SGOT) 17 5-34 U/L Alanine Aminotransferase (ALT/SGPT) 17 0-55 U/L Alkaline Phosphatase 56 40-136 U/L Myoglobin 116.0 H 10.0-92.0 NG/ML Total Protein 8.5 H 6.4-8.2 GM/DL Albumin 5.1 H 3.2-4.5 GM/DL Amylase Level 49 25-125 U/L Lipase 20 8-78 U/L Influenza Type A (RT-PCR) Not Detected Not Detecte Influenza Type B (RT-PCR) Not Detected Not Detecte SARS-CoV-2 RNA (RT-PCR) Not Detected Not Detecte Urine Color YELLOW Urine Clarity CLEAR Urine pH 7.0 5-9 Urine Specific [place] 1.015 L 1.016-1.022 Urine Protein TRACE H NEGATIVE Urine Glucose (UA) NEGATIVE NEGATIVE Urine Ketones 1+ H NEGATIVE Urine Nitrite NEGATIVE NEGATIVE Urine Bilirubin NEGATIVE NEGATIVE Urine Urobilinogen 0.2 < = 1.0 MG/DL Urine Leukocyte Esterase TRACE H NEGATIVE Urine RBC (Auto) NEGATIVE NEGATIVE Urine RBC 0-2 /HPF Urine WBC 5-10 H /HPF Urine Crystals NONE /LPF Urine Bacteria FEW H /HPF Urine Casts PRESENT /LPF Urine Hyaline Casts 0-2 H /LPF Urine Mucus NEGATIVE /LPF Urine Culture Indicated YES My Orders Orders - ISAIAS CHAVARRIA DO Ed Iv/Invasive Line Start (10/18/21 01:00) Monitor-Rhythm Ecg Trace Only (10/18/21 01:00) Amylase (10/18/21 01:00) Cbc With Automated Diff (10/18/21 01:00) Comprehensive Metabolic Panel (10/18/21 01:00) Lipase (10/18/21 01:00) Magnesium (10/18/21 01:00) Ua Culture If Indicated (10/18/21 01:00) Myoglobin Serum (10/18/21 01:00) Ed Iv/Invasive Line Start (10/18/21 01:00) Lactated Ringers (Lr 1000 Ml Iv Solution (10/18/21 01:00) Covid 19 Inhouse Test (10/18/21 01:00) Influenza A And B By Pcr (10/18/21 01:00) Isolation Central Supply Req (10/18/21 01:00) Manual Differential (10/18/21 00:58) Catheter(Urinary) Insert & Ass 03,15 (10/18/21 01:23) Urine Culture (10/18/21 01:30) Ceftriaxone 1 Gm Pre-Mix (Rocephin 1 Gm (10/18/21 01:51) Medications Given in ED Current Medications Medications Dose Ordered Sig/Agnes Route Start Time Stop Time Status Last Admin Dose Admin Lactated Ringer's 1,000 ml @ 0 mls/hr Q0M ONCE IV 10/18/21 01:00 10/18/21 01:02 DC 10/18/21 01:54 999 MLS/HR Vital Signs/I&O 10/18/21 00:56 Temp 36.5 Pulse 110 Resp 22 B/P (MAP) 134/90 (105) Pulse Ox 97 O2 Delivery Room Air Progress Progress Note : Progress Note PPE WORN COVID AND FLU TESTING DONE GIVEN IV FLUIDS NO VOMITING DURING ER STAY NO BM DURING ER STAY NO ABDOMINAL PAIN AT ANY TIME PT NOTED TO HAVE HEMATURIA AFTER CATHETER PLACEMENT. URINE INITIALLY WAS CLEAR. . Departure Communication (Admissions) 0152--SPOKE WITH DR. ROLAND, HOSPITALIST, ACCEPTS PT FOR ADMIT Impression Primary Impression: Sepsis Additional Impressions: UTI (urinary tract infection) Gastroenteritis Disposition: ADMITTED INPATIENT Condition: Stable Admissions Decision to Admit Reason: Admit from ER (General) Decision to Admit/Date: Oct 18, 2021 Time/Decision to Admit Time: 01:55 Departure-Patient Inst. Referrals: ILENE STERN MD (PCP/Family) Primary Care Physician ISAIAS CHAVARRIA DO Oct 18, 2021 01:09
[2021-10-18 01:23] LABS: ALBUMIN 5.1 GM/DL (3.2-4.5); CHLORIDE 102 MMOL/L (98-107); POTASSIUM 4.5 MMOL/L (3.6-5.0); SODIUM 139 MMOL/L (135-145)
[2021-10-18 01:24] LABS: AMYLASE 49 U/L (25-125); CALCIUM 10.5 MG/DL (8.5-10.1)
[2021-10-18 01:25] LABS: GLUCOSE 138 MG/DL (70-105); TOTAL PROTEIN 8.5 GM/DL (6.4-8.2)
[2021-10-18 01:26] LABS: CARBON DIOXIDE 19 MMOL/L (21-32)
[2021-10-18 01:27] LABS: BILIRUBIN,TOTAL 0.7 MG/DL (0.1-1.0)
[2021-10-18 01:29] LABS: ALKALINE PHOSPHATASE 56 U/L (40-136); CREATININE SERUM 1.44 MG/DL (0.60-1.30); GFR ESTIMATED 48
[2021-10-18 01:30] LABS: BUN/CREATININE RATIO 21
[2021-10-18 01:32] LABS: ALANINE AMINOTRANSFERASE 17 U/L (0-55); MAGNESIUM 1.8 MG/DL (1.6-2.4)
[2021-10-18 01:33] LABS: LIPASE 20 U/L (8-78)
[2021-10-18 01:39] LABS: BAND NEUTROPHILS 3 %; LYMPHOCYTES % (MANUAL) 15 %; MONOCYTES % (MANUAL) 2 %; NEUTROPHILS % (MANUAL) 80 %; RBC MORPH NORMAL
[2021-10-18 01:47] LABS: BACTERIA,URINE FEW /HPF; BILIRUBIN,URINE NEGATIVE (NEGATIVE); CLARITY,URINE CLEAR; COLOR,URINE YELLOW; GLUCOSE, URINE (UA) NEGATIVE (NEGATIVE); HYALINE CASTS, URINE 0-2 /LPF; KETONES,URINE 1+ (NEGATIVE); LEUKOCYTE ESTERASE ,URINE TRACE (NEGATIVE); NITRITE,URINE NEGATIVE (NEGATIVE); PROTEIN,URINE TRACE (NEGATIVE); RBC,URINE 0-2 /HPF
[2021-10-18] MEDS ORDERED: cefTRIAXone 1 GM PRE-MIX 50 ML IV STA (01:51)
[2021-10-18 03:40] VITALS: BP 132/75
[2021-10-18] MEDS ORDERED: ONDANSETRON 4 MG/2 ML (SDV) Z0FRAN IV PRN (04:30)
[2021-10-18] MEDS ORDERED: ACETAMINOPHEN 500 MG TAB (TYLENOL) PO PRN (04:30)
[2021-10-18] MEDS: LACTATED RINGERS 1,000 ML IV SCH ×3 (05:07→16:08)
[2021-10-18 06:14] LABS: BASOPHILS % (AUTO) 0 % (0-10); EOSINOPHILS % (AUTO) 0 % (0-10); HEMATOCRIT 34 % (40-54); HEMOGLOBIN 11.5 g/dL (13.3-17.7); LYMPHOCYTES # (AUTO) 0.5 10^3/uL (1.0-4.0); LYMPHOCYTES % (AUTO) 3 % (12-44); MEAN CORPUSCULAR HEMOGLOBIN 31 pg (25-34); MEAN CORPUSCULAR HGB CONC 34 g/dL (32-36); MEAN CORPUSCULAR VOLUME 91 fL (80-99); MEAN PLATELET VOLUME 10.1 fL (9.0-12.2); MONOCYTES # (AUTO) 0.5 10^3/uL (0.0-1.0); MONOCYTES % (AUTO) 3 % (0-12); NEUTROPHILS # (AUTO) 14.5 10^3/uL (1.8-7.8); NEUTROPHILS % (AUTO) 93 % (42-75); PLATELET COUNT 186 10^3/uL (130-400); WHITE BLOOD COUNT 15.6 10^3/uL (4.3-11.0)
[2021-10-18 06:20] LABS: ALBUMIN 4.6 GM/DL (3.2-4.5); CHLORIDE 106 MMOL/L (98-107); POTASSIUM 3.8 MMOL/L (3.6-5.0); SODIUM 139 MMOL/L (135-145)
[2021-10-18 06:21] LABS: CALCIUM 9.7 MG/DL (8.5-10.1)
[2021-10-18 06:22] LABS: GLUCOSE 118 MG/DL (70-105); TOTAL PROTEIN 7.7 GM/DL (6.4-8.2)
[2021-10-18 06:24] LABS: BILIRUBIN,TOTAL 0.8 MG/DL (0.1-1.0); CARBON DIOXIDE 19 MMOL/L (21-32)
[2021-10-18 06:26] LABS: ALKALINE PHOSPHATASE 46 U/L (40-136); CREATININE SERUM 1.18 MG/DL (0.60-1.30); GFR ESTIMATED 61
[2021-10-18 06:27] LABS: BUN/CREATININE RATIO 24
[2021-10-18 06:29] LABS: ALANINE AMINOTRANSFERASE 16 U/L (0-55)
[2021-10-18 07:30] VITALS: BP 123/73
[2021-10-18] MEDS ORDERED: PANTOPRAZOLE 40 MG (PROTONIX) VIAL IV SCH (09:00)
[2021-10-18] MEDS: LACTOBACILLUS ACIDOPHILUS (PROBIOTIC) CAPSULE PO SCH ×4 (09:20→20:21)
[2021-10-18] MEDS: fentaNYL INJ 100 MCG/2 ML AMP IV PRN ×2 (09:21→16:08)
[2021-10-18 11:15] VITALS: BP 141/73
[2021-10-18] MEDS ORDERED: TOLT4CAP26 PO (12:02)
[2021-10-18] MEDS ORDERED: MELO15TA39 PO (12:02)
[2021-10-18] MEDS ORDERED: AMLO-250 PO (12:02)
[2021-10-18] MEDS ORDERED: PANT40TA52 PO (12:02)
[2021-10-18] MEDS ORDERED: MAGN200T PO (12:02)
[2021-10-18] MEDS ORDERED: TRAM50TA3 PO (12:02)
[2021-10-18] MEDS ORDERED: ACET-2267 PO (12:02)
[2021-10-18] MEDS ORDERED: AMIT25TA9 PO (12:02)
[2021-10-18] MEDS ORDERED: ASPI-1238 PO (12:02)
[2021-10-18] MEDS ORDERED: GUAI1CAP51 PO (12:02)
[2021-10-18] MEDS ORDERED: LISI20TA26 PO (12:02)
[2021-10-18] MEDS ORDERED: CETI10TA17 PO (12:02)
[2021-10-18] MEDS ORDERED: BIFI4CAP PO (12:02)
[2021-10-18] MEDS ORDERED: MELA10TA2 PO (12:02)
[2021-10-18] MEDS ORDERED: LOVA40TA2 PO (12:02)
[2021-10-18] MEDS ORDERED: ACET-3075 PO (12:02)
[2021-10-18 15:30] VITALS: BP 141/71
--- NOTE | 2021-10-18 17:04 | History & Physical-Hospitalist ---
History of Present Illness HPI/Chief Complaint Felix Pritchard is an 81 year old male with PMH HTN, HLD, GERD, arthritis, BPH, who presented with nausea and vomiting. He reports that he was in his normal state of health until yesterday evening. He had several episodes of emesis. He also had several episodes of diarrhea. He had chills. He has been febrile overnight. He reports weakness. At this time, his nausea and vomiting have resolved. His diarrhea persists. He is not having abdominal pain. He is chronically incontinent. He deneis dysuria and frequency. His is at the bedside. Source: patient, family Exam Limitations: no limitations Date Seen 10/18/21 Time Seen by a Provider: 11:55 Attending Physician Tom Elizabeth MD PCP Admitting Physician: Renetta Holliday DO Attending Physician: Miesha Alaniz MD Referring Physician Date of Admission Oct 18, 2021 at 01:55 Home Medications & Allergies Home Medications Reviewed patient Home Medication Reconciliation performed by pharmacy medication reconciliations husbandry technician and/or nursing. Patients Allergies have been reviewed. Allergies Allergies Coded Allergies erythromycin base (Verified Allergy, Unknown, 05/10/07) morphine (Verified Allergy, Unknown, 05/13/07) Past Lznckyt-Xydrbo-Uexezc Hx Patient Social History Tobacco Use?: Yes Tobacco type used: Cigarettes Smoking Status: Former Smoker Smokeless Tobacco Frequency: Never a User Use of E-Cig and/or Vaping dev: No Substance use?: No Alcohol Use?: No Pt feels they are or have been: No Immunizations Up To Date Tetanus Booster (TDap): Unknown Date of Pneumonia Vaccine: Nov 06, 2008 Current Status Advance Directives: Unable to obtain Communicates: Verbally Primary Language: Stateless Preferred Spoken Language: Stateless Is interpretation needed?: No Implanted or Applied Medical D: None Past Medical History Surgeries: Abdominal, Bladder Surgery, Cardiac, Transurethral Resection High Cholesterol, Hypertension Prostate Problems, Bladder Infection Abdominal Hernia, Gastroesophageal Reflux, Diverticulosis, Hemorrhoids, Polyps, Esophagitis, Hiatal Hernia Arthritis Bladder Did You Recieve Any Treatments: Yes What Type of Treatment Did You: Surgical Intervention 07/23/13--TURP WITH TURBT BY DR. LENNON Blood Disorders: No Adverse Reaction/Blood Tranf: No Family Medical History Cancer Cancer of colon Cataract Chest pain Congestive heart failure Dementia Family history: Allergy Family history: Arthritis Family history: Breast disease Family history: Cardiovascular disease Family history: Diabetes mellitus Family history: Hypertension Headache Hearing loss Heart disease History of - anemia History of - respiratory disease Myocardial infarction Prostate cancer Stroke Visual impairment No Family History of: Abdominal aortic aneurysm [place]'s disease Alcoholism Aphasia Congenital heart disease Cystic fibrosis Dysphagia Family history: Alzheimer's disease Family history: Coronary thrombosis Family history: Gastrointestinal disease Family history: Glaucoma Family history: Osteoporosis Family history: Thyroid disorder Hereditary disease History of - disorder History of drug abuse Human immunodeficiency virus (HIV) seropositivity Hypercholesterolemia Infertile Kidney disease Malignant neoplasm of lung Parkinson's disease Psychotic disorder Seizure disorder Tuberculosis PAST SURGICAL HISTORY: -EGD'S AND COLONOSCOPIES--POLYPECTOMIES -HEMORRHOIDAL BANDING -11/13/2013--COLONOSCOPY AND BILATERAL INGUINAL HERNIA REPAIR WITH MESH BY -07/23/2013--TURP AND TURBT BY DR. LENNON -11/2011--CARDIAC CATH BY DR. JACOBO--MODERATE DISEASE TO LAD. NO INTERVENTION -06/14/21--STRESS TEST BY DR. LOVE--ESSENTIALLY NORMAL WITH EF 70% Review of Systems Constitutional: chills, fever, weakness EENTM: no symptoms reported Respiratory: no symptoms reported Cardiovascular: no symptoms reported Gastrointestinal: diarrhea, nausea, vomiting Genitourinary: incontinence Physical Exam Physical Exam Vital Signs Vital Signs - First Documented 10/18/21 00:56 Temp 36.5 Pulse 110 Resp 22 B/P (MAP) 134/90 (105) Pulse Ox 97 O2 Delivery Room Air Capillary Refill : Less Than 3 Seconds Height, Weight, BMI Height: 5'10.00" Weight: 163lbs. 0.0oz. 73.058137ia; 22.58 BMI Method: General Appearance: No Apparent Distress, WD/WN HEENT: PERRL/EOMI, Pharynx Normal Neck: Normal Inspection, Supple Respiratory: Lungs Clear, Normal Breath Sounds, No Respiratory Distress Cardiovascular: Regular Rate, Rhythm, No Edema, No Murmur Gastrointestinal: Normal Bowel Sounds, Non Tender, Soft Extremity: Normal Inspection, No Pedal Edema Neurologic/Psychiatric: Alert, Normal Mood/Affect Skin: Normal Color, Warm/Dry Results Results/Procedures Labs Laboratory Tests 10/18/21 00:58 10/18/21 05:42 Patient resulted labs reviewed. Imaging: Reviewed Imaging Report Assessment/Plan Admission Diagnosis Sepsis Admission Status: Inpatient Order (span 2 midnights) Reason for Inpatient Admission: Gastroenteritis UTI Assessment and Plan Sepsis UTI Gastroenteritis HODA UA concerning for possible UTI C diff negative IV fluids IV antibiotics HTN GERD BPH Arthritis Continue home meds DVT prophylaxis: Lovenox Diagnosis/Problems Diagnosis/Problems (1) Sepsis Status: Acute (2) Gastroenteritis Status: Acute (3) UTI (urinary tract infection) Status: Acute (4) HODA (acute kidney injury) Status: Acute MIESHA ALANIZ MD Oct 18, 2021 17:04
[2021-10-18] MEDS ORDERED: ENOXAPARIN 40 MG/0.4 ML (LOVENOX) SYR SC SCH (17:15)
[2021-10-18 19:12] VITALS: BP 143/76
[2021-10-18] MEDS ORDERED: MELATONIN 10 MG TABLET PO SCH (21:00)
[2021-10-18] MEDS ORDERED: AMITRIPTYLINE 25 MG (ELAVIL) TAB PO SCH (21:00)
[2021-10-18 23:20] VITALS: BP 141/73
[2021-10-19] MEDS ORDERED: cefTRIAXone 1 GM/50 ML (PRE-MIX) IV SCH (02:00)
[2021-10-19] MEDS: LACTATED RINGERS 1,000 ML IV SCH (02:04)
[2021-10-19 03:00] VITALS: BP 122/66
[2021-10-19 05:28] LABS: BASOPHILS % (AUTO) 1 % (0-10); EOSINOPHILS # (AUTO) 0.1 10^3/uL (0.0-0.3); EOSINOPHILS % (AUTO) 1 % (0-10); HEMATOCRIT 29 % (40-54); HEMOGLOBIN 10.1 g/dL (13.3-17.7); LYMPHOCYTES # (AUTO) 1.7 10^3/uL (1.0-4.0); LYMPHOCYTES % (AUTO) 28 % (12-44); MEAN CORPUSCULAR HEMOGLOBIN 32 pg (25-34); MEAN CORPUSCULAR HGB CONC 34 g/dL (32-36); MEAN CORPUSCULAR VOLUME 92 fL (80-99); MEAN PLATELET VOLUME 10.2 fL (9.0-12.2); MONOCYTES # (AUTO) 0.3 10^3/uL (0.0-1.0); MONOCYTES % (AUTO) 6 % (0-12); NEUTROPHILS # (AUTO) 3.7 10^3/uL (1.8-7.8); NEUTROPHILS % (AUTO) 64 % (42-75); PLATELET COUNT 140 10^3/uL (130-400); WHITE BLOOD COUNT 5.8 10^3/uL (4.3-11.0)
[2021-10-19 05:37] LABS: ALBUMIN 3.5 GM/DL (3.2-4.5); POTASSIUM 3.8 MMOL/L (3.6-5.0)
[2021-10-19 05:38] LABS: CALCIUM 8.6 MG/DL (8.5-10.1)
[2021-10-19 05:39] LABS: TOTAL PROTEIN 6.2 GM/DL (6.4-8.2)
[2021-10-19 05:41] LABS: BILIRUBIN,TOTAL 0.3 MG/DL (0.1-1.0)
[2021-10-19 05:43] LABS: CREATININE SERUM 0.87 MG/DL (0.60-1.30)
[2021-10-19] MEDS ORDERED: PANTOPRAZOLE 40 MG (PROTONIX) TAB PO SCH (07:00)
[2021-10-19 07:20] VITALS: BP 164/77
[2021-10-19] MEDS ORDERED: TRIM/SULFAMETH 160/800 (SEPTRA DS) TAB PO NR (08:30)
[2021-10-19] MEDS: LACTOBACILLUS ACIDOPHILUS (PROBIOTIC) CAPSULE PO SCH (08:48)
[2021-10-19] MEDS ORDERED: CETIRIZINE HCL (ZYRTEC) 10 MG TAB PO SCH (09:00)
[2021-10-19] MEDS ORDERED: NON-FORMULARY MEDICATION 1 EA EA (Meloxicam 15 MG) PO SCH (09:00)
[2021-10-19] MEDS ORDERED: ASPIRIN E.C. 81 MG (ECOTRIN) TAB PO SCH (09:00)
[2021-10-19] MEDS ORDERED: TOLTERODINE LA 2 MG (DETROL LA) CAP PO SCH (09:00)
[2021-10-19] MEDS ORDERED: lisINopril 20 MG (PRINIVIL) TABLET PO SCH (09:00)
[2021-10-19] MEDS ORDERED: NON-FORMULARY MEDICATION 1 EA EA (Tolterodine Tartrate (Tolterodine Tartrate ER) 4 MG) PO SCH (09:00)
[2021-10-19] MEDS ORDERED: LORATADINE (CLARITIN) 10 MG TAB PO SCH (09:00)
[2021-10-19] MEDS ORDERED: MELOXICAM 7.5 MG (MOBIC) TABLET PO SCH (09:00)
[2021-10-19 11:06] VITALS: BP 155/70
[2021-10-19] MEDS ORDERED: SULF1TAB38 PO (12:24)
[2021-10-19 13:40] VITALS: BP 155/70
[2021-10-19] MEDS ORDERED: amLODIPine 5 MG (NORVASC) TAB PO SCH (15:00)
[2021-10-19] MEDS ORDERED: TRIM/SULFAMETH 160/800 (SEPTRA DS) TAB PO SCH (18:00)
== END 2021-10-19 13:40 | disposition home or self-care (01) | DRG 872 ==
LOC: EDUNIT# 00:53 → ER 00:54 → 4TH 01:55 → EDLOC 01:55
PROVIDERS: ADMIT Internal Medicine; ATTEND Internal Medicine
DX: A41.9 Sepsis, unspecified organism (principal); N39.0 Urinary tract infection, site not specified; N17.9 Acute kidney failure, unspecified; E78.00 Pure hypercholesterolemia, unspecified; I10 Essential (primary) hypertension; K21.9 Gastro-esophageal reflux disease without esophagitis; K57.90 Diverticulosis of intestine, part unspecified, without perforation or abscess without bleeding; M19.90 Unspecified osteoarthritis, unspecified site; Z20.822 Contact with and (suspected) exposure to COVID-19; Z79.82 Long term (current) use of aspirin; Z79.899 Other long term (current) drug therapy; K52.9 Noninfective gastroenteritis and colitis, unspecified; N40.0 Benign prostatic hyperplasia without lower urinary tract symptoms; Z87.891 Personal history of nicotine dependence
CPT/HCPCS: 36415; 80053; 81000; 82150; 82274; 83690; 83735; 83874; 85007; 85025; 85027; 87015; 87045; 87046; 87088; 87324; 87449; 87636; 87899; 89055; 93041

== ENCOUNTER → 2021-10-28 | Day surgery (SDC) | payer MEDICARE, OTHER ==
[~2021-10-28] VITALS: Wt 69.4 kg
[~2021-10-28] MED LIST changes: +ACET-2267 PO; +ACET-3075 PO; +AMLO-250 PO; +ASPI-1238 PO; +BIFI4CAP PO; +CETI10TA17 PO; +GUAI1CAP51 PO; +LISI20TA26 PO; +LOVA40TA2 PO; +MAGN200T PO; +MELA10TA2 PO; +MELO15TA39 PO; +NS IV 500 ML 500 ML IV ONE; +PANT40TA52 PO; +SULF1TAB38 PO; +TOLT4CAP26 PO; +TRAM50TA3 PO
[2021-10-28 15:00] VITALS: BP 137/74
[2021-10-28 15:15] LABS: HEMATOCRIT 30 % (40-54); HEMOGLOBIN 10.1 g/dL (13.3-17.7); MEAN CORPUSCULAR HEMOGLOBIN 31 pg (25-34); MEAN CORPUSCULAR HGB CONC 33 g/dL (32-36); MEAN CORPUSCULAR VOLUME 93 fL (80-99); MEAN PLATELET VOLUME 9.2 fL (9.0-12.2); PLATELET COUNT 274 10^3/uL (130-400); WHITE BLOOD COUNT 11.4 10^3/uL (4.3-11.0)
== END ==
LOC: SDC 14:00
PROVIDERS: ATTEND Nurse Practitioner Family
DX: E86.0 Dehydration (principal); D64.9 Anemia, unspecified
CPT/HCPCS: 36415; 85027; 96360

== ENCOUNTER 2022-04-25 13:28 | Emergency (ER) | payer MEDICARE, OTHER ==
[~2022-04-25] VITALS: Ht 175 cm; Wt 75.0 kg
[~2022-04-25 13:28] MED LIST changes: -NS IV 500 ML 500 ML IV ONE
--- NOTE | 2022-04-25 13:49 | ED EENT ---
History of Present Illness General Chief Complaint: Nasal Problems Stated Complaint: NOSE BLEED Nursing Triage Note: PT STATES NOSE BLEED SINCE ABOUT 1220 THIS AFTERNOON. STOPPED A COUPLE TIMES AND THEN STARTED AGAIN. NOT BLEEDING AT TRIAGE. NO INJURY Source: patient Exam Limitations: no limitations History of Present Illness Date Seen by Provider: Apr 25, 2022 Time Seen by Provider: 13:49 Initial Comments Patient is an 82-year-old male who presents to the emergency room today with a chief complaint of nosebleed. Patient states that he has had some congestion over the last 3 to 4 days. He spoke with his local pharmacist and was given some [id number] Flonase. Patient states since he started using the Flonase he has noted some nosebleeds. He states prior to today they stopped on their own and they were mild. He did wake up in the middle of the night with a mild nosebleed and then again at 6:00 this morning. At about 12:00 this afternoon he states it was "gushing". He states as soon as it would stop it would start up again. He denies any nausea. No vomiting. He has had prior nose trauma at the age of 33 with 2 nose surgeries. He states "it has never been right since". He is only on daily baby aspirin. He states he bleeds "a lot" recently. He is followed at the cancer center/hematology for "high white count". Denies feeling short of breath or lightheaded. Bleeding is controlled at this time. Timing/Duration: abrupt (1220 this afternoon) Location: nose Prearrival Treatment: squeezing nostrils Modifying Factors: Improves With Other (Has been using OTC Flonase) Associated Symptoms: nasal congestion/drainage Allergies and Home Medications Allergies Coded Allergies: erythromycin base (Verified Allergy, Unknown, 05/10/07) morphine (Verified Allergy, Unknown, 05/13/07) Patient Home Medication List Home Medication List Reviewed: Yes Acetaminophen (Tylenol Extra Strength) 500 Mg Tablet, 500 MG PO TID, (Reported) Entered as Reported by: ANT CALABRESE on 10/18/21 1202 Acetaminophen/Diphenhydramine (Tylenol Pm Ex-Strength Caplet) 500 Mg-25 Mg Tablet, 1 EACH PO HS, (Reported) Entered as Reported by: ANT CALABRESE on 10/18/21 1202 Amitriptyline HCl (Amitriptyline HCl) 25 Mg Tablet, 25 MG PO HS, (Reported) Entered as Reported by: ANT CALABRESE on 10/18/211201 Amlodipine Besylate (Amlodipine Besylate) 5 Mg Tablet, 5 MG PO 1500, (Reported) Entered as Reported by: ANT CALABRESE on 10/18/211201 Aspirin (Aspirin EC) 81 Mg Tablet.dr, 81 MG PO DAILY, (Reported) Entered as Reported by: ANT CALABRESE on 10/18/211201 Bifidobacterium Infantis (Align) 4 Mg (1 Billion Cell) Capsule, 4 MG PO DAILY, (Reported) Entered as Reported by: ANT CALABRESE on 10/18/211201 Cetirizine HCl (Cetirizine HCl) 10 Mg Tablet, 10 MG PO DAILY, (Reported) Entered as Reported by: ANT CALABRESE on 10/18/211201 Guaifenesin/Dextromethorphan (Coricidin Hbp Softgel) 200 Mg-10 Mg Capsule, 1 EACH PO 1500, (Reported) Entered as Reported by: ANT CALABRESE on 10/18/211201 Lisinopril (Lisinopril) 20 Mg Tablet, 20 MG PO DAILY, (Reported) Entered as Reported by: ANT CALABRESE on 10/18/211201 Lovastatin (Lovastatin) 40 Mg Tablet, 40 MG PO 1500, (Reported) Entered as Reported by: ANT CALABRESE on 10/18/211201 Magnesium (Magnesium) 200 Mg Tablet, 200 MG PO DAILY, (Reported) Entered as Reported by: ANT CALABRESE on 10/18/211201 Melatonin (Melatonin) 10 Mg Tablet, 10 MG PO HS, (Reported) Entered as Reported by: ANT CALABRESE on 10/18/211201 Meloxicam (Meloxicam) 15 Mg Tablet, 15 MG PO DAILY, (Reported) Entered as Reported by: ANT CALABRESE on 10/18/211201 Pantoprazole Sodium (Pantoprazole Sodium) 40 Mg Tablet.dr, 40 MG PO DAILY BEFORE BREAKFAST, (Reported) Entered as Reported by: ANT CALABRESE on 10/18/211201 Sulfamethoxazole/Trimethoprim (Bactrim Ds Tablet) 1 Each Tablet, 1 EA PO BID WITH MEALS Prescribed by: MIESHA ALANIZ on 10/19/21 1224 Tolterodine Tartrate (Tolterodine Tartrate ER) 4 Mg Cap.er.24h, 4 MG PO DAILY, (Reported) Entered as Reported by: ANT CALABRESE on 10/18/21 1202 Tramadol HCl (Tramadol HCl) 50 Mg Tablet, 50 MG PO Q6H PRN for PAIN-MODERATE (5- 7), (Reported) Entered as Reported by: ANT CALABRESE on 10/18/21 1202 Review of Systems Review of Systems Constitutional: see HPI Nose: epistaxis, previous injury Mouth: other (Dry mouth) Throat: no symptoms reported Respiratory: no symptoms reported Cardiovascular: no symptoms reported Gastrointestinal: no symptoms reported Skin: no symptoms reported Neurological: No Symptoms Reported Past Bzvlvit-Apbpsy-Pdeaqr Hx Patient Social History Tobacco Use?: Yes Smoking Status: Former Smoker Substance use?: No Alcohol Use?: No Immunizations Up To Date Third COVID19 Vaccination Date: YES Past Medical History Surgery/Hospitalization HX: NOSE, ARTHRITIS IN NECK, "COLON ISSUES" Surgeries: Yes Abdominal, Bladder Surgery, Cardiac, Transurethral Resection Respiratory: No Cardiac: Yes High Cholesterol, Hypertension Neurological: No Reproductive Disorders: Yes (ENLARGED PROSTATE) Genitourinary: Yes (BLADDER CANCER) Prostate Problems, Bladder Infection Gastrointestinal: Yes Abdominal Hernia, Gastroesophageal Reflux, Diverticulosis, Hemorrhoids, Polyps, Esophagitis, Hiatal Hernia Musculoskeletal: Yes Arthritis Endocrine: No HEENT: No Cancer: Yes Bladder Did You Recieve Any Treatments: Yes What Type of Treatment Did You: Surgical Intervention Psychosocial: No Integumentary: No Blood Disorders: No Adverse Reaction/Blood Tranf: No Family Medical History Cancer Cancer of colon Cataract Chest pain Congestive heart failure Dementia Family history: Allergy Family history: Arthritis Family history: Breast disease Family history: Cardiovascular disease Family history: Diabetes mellitus Family history: Hypertension Headache Hearing loss Heart disease History of - anemia History of - respiratory disease Myocardial infarction Prostate cancer Stroke Visual impairment No Family History of: Abdominal aortic aneurysm Gavino's disease Alcoholism Aphasia Congenital heart disease Cystic fibrosis Dysphagia Family history: Alzheimer's disease Family history: Coronary thrombosis Family history: Gastrointestinal disease Family history: Glaucoma Family history: Osteoporosis Family history: Thyroid disorder Hereditary disease History of - disorder History of drug abuse Human immunodeficiency virus (HIV) seropositivity Hypercholesterolemia Infertile Kidney disease Malignant neoplasm of lung Parkinson's disease Psychotic disorder Seizure disorder Tuberculosis PAST SURGICAL HISTORY: -EGD'S AND COLONOSCOPIES--POLYPECTOMIES -HEMORRHOIDAL BANDING -11/13/2013--COLONOSCOPY AND BILATERAL INGUINAL HERNIA REPAIR WITH MESH BY -07/23/2013--TURP AND TURBT BY DR. LENNON -11/2011--CARDIAC CATH BY DR. JACOBO--MODERATE DISEASE TO LAD. NO INTERVENTION -06/14/21--STRESS TEST BY DR. LOVE--ESSENTIALLY NORMAL WITH EF 70% Physical Exam Vital Signs Vital Signs - First Documented 04/25/22 13:34 Temp 36.6 Pulse 76 Resp 18 B/P (MAP) 169/77 (107) Pulse Ox 97 O2 Delivery Room Air Height, Weight, BMI Height: 5'10.00" Weight: 163lbs. 0.0oz. 73.614075hc; 24.00 BMI Method: General Appearance: no apparent distress, thin Eyes: bilateral eye normal inspection, bilateral eye PERRL, bilateral eye EOMI Ears: bilateral ear auricle normal Nose: other (Patient has clot left nostril against the septum. No active bleeding.) Mouth/Throat: other (No active bleeding noted in the posterior pharynx, very dry oral mucosa) Neck: lymphadenopathy (L) (Mild upper anterior cervical lymphadenopathy, nontender) Cardiovascular: regular rate, rhythm Respiratory: lungs clear, normal breath sounds, no respiratory distress, no accessory muscle use Gastrointestinal: non tender, soft Neurologic/Psychiatric: alert, normal mood/affect, oriented x 3 Skin: normal color, warm/dry Progress/Results/Core Measures Results/Orders Lab Results Laboratory Tests Test 04/25/22 14:33 Range/Units White Blood Count 5.6 4.3-11.0 10^3/uL Red Blood Count 3.63 L 4.30-5.52 10^6/uL Hemoglobin 11.0 L 13.3-17.7 g/dL Hematocrit 33 L 40-54 % Mean Corpuscular Volume 90 80-99 fL Mean Corpuscular Hemoglobin 30 25-34 pg Mean Corpuscular Hemoglobin Concent 34 32-36 g/dL Red Cell Distribution Width 13.2 10.0-14.5 % Platelet Count 204 130-400 10^3/uL Mean Platelet Volume 9.0 9.0-12.2 fL Immature Granulocyte % (Auto) 0 % Neutrophils (%) (Auto) 59 42-75 % Lymphocytes (%) (Auto) 33 12-44 % Monocytes (%) (Auto) 5 0-12 % Eosinophils (%) (Auto) 2 0-10 % Basophils (%) (Auto) 1 0-10 % Neutrophils # (Auto) 3.3 1.8-7.8 10^3/uL Lymphocytes # (Auto) 1.8 1.0-4.0 10^3/uL Monocytes # (Auto) 0.3 0.0-1.0 10^3/uL Eosinophils # (Auto) 0.1 0.0-0.3 10^3/uL Basophils # (Auto) 0.0 0.0-0.1 10^3/uL Immature Granulocyte # (Auto) 0.0 0.0-0.1 10^3/uL My Orders Orders - LAURA ASENCIO MD Cbc With Automated Diff (04/25/22 14:00) Vital Signs/I&O Blood Pressure Mean: 107 Progress Progress Note : Time: 14:59 Progress Note Patient seen and evaluated by me. Eval includes Physical exam and CBC. Pertinent PE findings, stable VS, WDWN elderly male in NAD. Left nare with cru sted, dried blood against the septum in the left nare and small scattered spots of fresh blood against the septum. No active bleeding. Heart is regular, lungs clear, abdomen benign. DDx based on H&H epistaxsis, coagulopathy. Patient monitored while labs returned. Patient's hemoglobin is 11. His vital signs are stable, blood pressure is great. No return of epistaxis. No justyna rning historical findings for a coagulopathy, No PE findings to suggest coagluopathy (no petechial rash or other skin findings), no significant etoh use disorder noted, no blood in stool or any concerning vomiting, Patient counseled on conservative measures including saline nasal spray, coolmist humidifier, direct pressure. Verbalized understanding and agreement with the discharge instructions. All questions are sought and answered. Patient is stable for discharge Departure Impression Primary Impression: Epistaxis Disposition: 01 HOME, SELF-CARE Condition: Stable Departure-Patient Inst. Decision time for Depature: 15:00 Referrals: ILENE STERN MD (PCP/Family) Primary Care Physician Add. Discharge Instructions: If you start having a nosebleed again, pinch just below the nasal bridge for 5 to 10 minutes without letting go. If you continue to have a nosebleed please return to the emergency room for reevaluation. Stop using the Flonase. You can use jywy-stb-[id number] saline nasal spray also known as Stanton nasal spray, as often as you would like to keep the nasal mucosa moist. Use a coolmist humidifier in your room at night. They also have saline Gel Nasal Swabs you can use to help keep the tissues of the nose moist. Try not to blow your nose for 24 hours. Follow up with Dr Stern as needed. Copy Copies To 1: ILENE STERN MD, KATHRYN M MD Apr 25, 2022 13:49
[2022-04-25 14:39] LABS: BASOPHILS % (AUTO) 1 % (0-10); EOSINOPHILS # (AUTO) 0.1 10^3/uL (0.0-0.3); EOSINOPHILS % (AUTO) 2 % (0-10); HEMATOCRIT 33 % (40-54); LYMPHOCYTES # (AUTO) 1.8 10^3/uL (1.0-4.0); LYMPHOCYTES % (AUTO) 33 % (12-44); MEAN CORPUSCULAR HEMOGLOBIN 30 pg (25-34); MEAN CORPUSCULAR HGB CONC 34 g/dL (32-36); MEAN CORPUSCULAR VOLUME 90 fL (80-99); MONOCYTES # (AUTO) 0.3 10^3/uL (0.0-1.0); MONOCYTES % (AUTO) 5 % (0-12); NEUTROPHILS # (AUTO) 3.3 10^3/uL (1.8-7.8); NEUTROPHILS % (AUTO) 59 % (42-75); PLATELET COUNT 204 10^3/uL (130-400); WHITE BLOOD COUNT 5.6 10^3/uL (4.3-11.0)
[2022-04-25 15:27] VITALS: BP 123/76
== END 2022-04-25 15:23 | disposition home or self-care (01) ==
LOC: EDUNIT# 13:28 → ER 13:30
DX: R04.0 Epistaxis (principal); R59.1 Generalized enlarged lymph nodes; Z79.82 Long term (current) use of aspirin; Z87.891 Personal history of nicotine dependence
CPT/HCPCS: 36415; 85025; 99282

== ENCOUNTER 2022-05-24 05:36 | Outpatient (CLI) | payer MEDICARE, OTHER ==
[~2022-05-24] VITALS: Ht 177.8 cm; Wt 74.0 kg
== END 2022-05-25 10:17 | disposition home or self-care (01) ==
LOC: PREOP 05:36
PROVIDERS: ATTEND Surgery
DX: Z01.818 Encounter for other preprocedural examination (principal)

== ENCOUNTER 2022-06-06 08:51 | Day surgery (SDC) | payer MEDICARE, OTHER ==
[~2022-06-06] VITALS: Ht 177.8 cm; Wt 74.0 kg
[2022-06-06 09:10] VITALS: BP 149/86
[2022-06-06 11:05] VITALS: BP 113/68
[2022-06-06 11:10] VITALS: BP 108/67
[2022-06-06 11:15] VITALS: BP 114/58
[2022-06-06] MEDS ORDERED: HURRICAINE EXT TUBE (BENZOCAINE) ONE (14:21)
[2022-06-06] MEDS ORDERED: LACTATED RINGERS 1,000 ML IV ONE (14:21)
--- NOTE | 2022-06-06 14:46 | Anesthesia-General Post-Op ---
MAC Patient Condition Mental Status/LOC: Same as Preop Cardiovascular: Satisfactory Nausea/Vomiting: Absent Respiratory: Satisfactory Pain: Controlled Complications: Absent Post Op Complications Complications None Follow Up Care/Instructions Patient Instructions None needed. Anesthesiology Discharge Order Discharge Order Patient is doing well, no complaints, stable vital signs, no apparent adverse anesthesia problems. No complications reported per nursing. JOJO TRISTAN CRNA June 06, 2022 14:46
--- NOTE | 2022-06-06 17:04 | OPERATIVE REPORT ---
DATE OF SERVICE: 06/06/2022 PREOPERATIVE DIAGNOSIS: Iron deficiency anemia, rectal bleeding. POSTOPERATIVE DIAGNOSES: Hiatal hernia, diverticulosis, internal hemorrhoids. PROCEDURES: EGD with biopsies, colonoscopy. SURGEON: Germán Royal DO ANESTHESIA: Per PURSE SEINER. ESTIMATED BLOOD LOSS: None. COMPLICATIONS: None. SPECIMENS: Antrum GE junction. INDICATIONS: The patient is an 82-year-old male, needing evaluation for iron deficiency anemia, [ ] and rectal bleeding. He understands risks and benefits of procedure and wished to proceed. Consent was signed in chart. DESCRIPTION OF PROCEDURE: The patient was taken to endoscopy suite, placed in the left lateral recumbent position. Timeout was performed. Scope was inserted in the mouth, down the esophagus, stomach, into the duodenum without difficulty. No polyps, masses or ulcerations within the duodenum. Scope was slowly retracted back. No polyps, masses or ulcerations within the stomach. Biopsy of the antrum was obtained. Scope was retroflexed noting a small hiatal hernia, no other pathology. Scope was returned to its normal position, slowly withdrawn until distal esophagus, which had normal appearance. Biopsy of GE junction was obtained. Scope was slowly retracted back until completely removed. The patient then had digital rectal exam performed. Slight hemorrhoidal disease. No palpable polyps, masses or ulcerations. Scope was inserted in the rectum, advanced all the way to the cecum with minimal difficulty. Prep was adequate. Scope was slowly retracted back. No polyps, masses or ulcerations within the cecum, ascending, transverse, descending and sigmoid colon. Minimal amount of diverticulosis present. Scope was retroflexed noting internal hemorrhoids, no other pathology. Scope was returned to its normal position, slowly withdrawn until completely removed. The patient tolerated the procedure well, with no complications, taken to recovery room in stable condition. RECOMMENDATIONS: The patient will have repeat colonoscopy on an as needed basis. We will try some hemorrhoidal cream to see if this does not improve his overall symptoms. If he continues to have iron deficiency anemia, would recommend doing a small bowel capsule endoscopy. The patient will follow up in 2 weeks. Job ID: [id number] DocumentID: [id number] Dictated Date: 06/06/2022 11:03:40 Loss Prevention Auditor Date: 06/06/2022 17:02:00 Dictated By: GERMÁN ROYAL DO
[2022-06-07] MEDS ORDERED: LACTATED RINGERS 1,000 ML IV STA (11:54)
[2022-06-07] MEDS ORDERED: HURRICAINE EXT TUBE (BENZOCAINE) XX PRN (12:00)
[2022-06-07 12:04] VITALS: BP 114/58
== END 2022-06-06 12:13 | disposition home or self-care (01) ==
LOC: ENDO 08:51
PROVIDERS: ATTEND Surgery
DX: K20.90 Esophagitis, unspecified without bleeding (principal); K31.89 Other diseases of stomach and duodenum; K44.9 Diaphragmatic hernia without obstruction or gangrene; K64.8 Other hemorrhoids; D50.9 Iron deficiency anemia, unspecified; K57.31 Diverticulosis of large intestine without perforation or abscess with bleeding; F17.210 Nicotine dependence, cigarettes, uncomplicated

== ENCOUNTER → 2022-11-10 | Outpatient (CLI) | payer MEDICARE, OTHER ==
--- NOTE | 2022-11-10 08:35 | Diagnostic Imaging Report ---
EXAMINATION: Chest 2 view HISTORY: Cough COMPARISON: 02/25/2016 FINDINGS: There is moderate base atelectasis. Otherwise, the lungs are clear without edema or pneumonia. No pleural effusion or pneumothorax. Heart size is normal. IMPRESSION: 1. Mild atelectasis, otherwise clear lungs. Dictated by: Dictated on workstation # [id number]
== END ==
LOC: RAD 08:07
PROVIDERS: ATTEND Internal Medicine
DX: J98.11 Atelectasis (principal)
CPT/HCPCS: 71046